=== PATIENT | female | born 1950 | race Caucasian/White ===

== ENCOUNTER 2024-03-19 09:15 | Emergency (ER) | payer MEDICARE, SELFPAY ==
[2024-03-19] VITALS (9 sets, daily range): BP systolic 180–189; BP diastolic 98–116; PULSE 64–75; RESP 17–23; TEMP 36.6; O2SAT 95–98
--- NOTE | 2024-03-19 09:27 | ED.GENADULT ---
HPI - General Adult General Chief complaint: Urogenital-Female Stated complaint: UTI? ams Time Seen by Provider: 03/19/24 09:17 History of Present Illness HPI narrative: Patient is a 73-year-old female with history of dementia who presents ER from her halfway with concerns for possible UTI. She has been urinating more often than usual. She feels like she has a full bladder. No reports of fevers or chills. Patient has no additional complaints at this time. Blood pressure is noted be elevated, unsure if she received her blood pressure medications this morning. Related Data Allergies Allergy/AdvReac Type Severity Reaction Status Date / Time codeine Allergy Unknown Verified 03/19/24 09:26 donepezil Allergy Unknown Verified 03/19/24 09:26 Review of Systems Review of Systems: ROS unobtainable: Yes unobtainable due to mental status PMFSH Past Medical History Medical History (Updated 03/19/24 @ 10:29 by Hernán Frost MD) Dementia Depression Hyperlipidemia Hypertension Type 2 diabetes mellitus Surgical History Surgical History (Updated 03/19/24 @ 10:29 by Hernán Frost MD) No pertinent past surgical history Exam Narrative: GENERAL: Well-appearing, well-nourished, and in no acute distress. HEAD: Normocephalic, atraumatic. ENT: Mucous membranes moist. CHEST: Clear to auscultation. No respiratory distress. HEART: Regular rate and rhythm. Normal peripheral pulses. ABDOMEN: Soft, nontender, nondistended. : Normal appearing external genitalia without discharge. EXTREMITIES: Normal range of motion. No edema. SKIN: Warm, dry, no rash. NEURO: Alert and oriented x2. PSYCH: Normal mood and affect. Course Course Emergency Course: Unremarkable evaluation. Discharge back to facility. Labs normal. Vital Signs Vital signs: Vital Signs Temperature 98 F 03/19/24 09:20 Pulse Rate 74 03/19/24 09:20 Respiratory Rate 18 03/19/24 09:20 Blood Pressure 189/114 H 03/19/24 09:20 Pulse Oximetry 96 03/19/24 09:20 Oxygen Delivery Room Air 03/19/24 09:20 Temperature 98 F 03/19/24 09:20 Pulse Rate 70 03/19/24 09:41 Respiratory Rate 20 03/19/24 09:41 Blood Pressure 182/98 H 03/19/24 09:41 Pulse Oximetry 97 03/19/24 09:41 Oxygen Delivery Room Air 03/19/24 09:20 Medical Decision Making Vital Signs Vital Signs: Vital Signs Temperature 98 F 03/19/24 09:20 Pulse Rate 74 03/19/24 09:20 Respiratory Rate 18 03/19/24 09:20 Blood Pressure 189/114 H 03/19/24 09:20 Pulse Oximetry 96 03/19/24 09:20 Oxygen Delivery Room Air 03/19/24 09:20 Temperature 98 F 03/19/24 09:20 Pulse Rate 70 03/19/24 09:41 Respiratory Rate 20 03/19/24 09:41 Blood Pressure 182/98 H 03/19/24 09:41 Pulse Oximetry 97 03/19/24 09:41 Oxygen Delivery Room Air 03/19/24 09:20 Lab Data 03/19/24 09:27 03/19/24 09:27 Labs: Lab Results 03/19/24 Range/Units 09:27 WBC 6.4 (4.5-10.0) K/mm3 RBC 4.23 (4.2-5.4) M/mm3 Hgb 12.8 (12.0-15.0) g/dL Hct 39.4 (37.0-47.0) % MCV 93.1 (80-100) fl MCH 30.3 (26-34) pg MCHC 32.5 (32-36) g/dl RDW 15.1 H (11.5-14.5) % Plt Count 179 (150-375) k/mm3 MPV 10.8 H (7.4-10.4) fl Immature Gran % (Auto) 0.3 (0-0.5) % Neut % (Auto) 68.4 (45.5-73.1) % Lymph % (Auto) 23.3 (18.3-44.2) % [place] % (Auto) 6.3 (2.6-8.5) % Eos % (Auto) 1.4 (0-4.4) % Baso % (Auto) 0.3 (0.2-1.2) % Lymph # (Auto) 1.48 (0.9-3.2) K/mm3 [place] # (Auto) 0.4 (0.1-0.6) K/mm3 Eos # (Auto) 0.1 (0-0.3) K/mm3 Baso # (Auto) 0.0 (0.0-0.1) K/mm3 Abs Immat Gran (auto) 0.02 (0.00-0.031) K/mm3 Absolute Neuts (auto) 4.3 (1.3-6.7) K/mm3 Absolute Nucleated RBC 0.000 (0.0-0.012) K/mm3 Nucleated RBC % 0.0 (0.0-0.2) % Sodium 137 (137-145) mmol/L Potassium 4.2 (3.4-5.0) mmol/L Chloride 106 (98-107) mmol/L Carbon Dioxide 26 (22-30) mmol/L Anion Gap 5 (4
[2024-03-19 09:40] LABS: Basophils Percent Auto 0.3 % (0.2-1.2); Eosinophils Absolute Auto 0.1 K/mm3 (0-0.3); Eosinophils Percent Auto 1.4 % (0-4.4); Hematocrit 39.4 % (37.0-47.0); Hemoglobin 12.8 g/dL (12.0-15.0); Immature Granulocyte Absolute 0.02 K/mm3 (0.00-0.031); Immature Granulocyte Percent A 0.3 % (0-0.5); Lymphocytes Absolute Auto 1.48 K/mm3 (0.9-3.2); Lymphocytes Percent Auto 23.3 % (18.3-44.2); Mean Corpuscular HGB Conc 32.5 g/dl (32-36); Mean Corpuscular Hemoglobin 30.3 pg (26-34); Mean Corpuscular Volume 93.1 fl (80-100); Mean Platelet Volume 10.8 fl (7.4-10.4); Monocytes Absolute Auto 0.4 K/mm3 (0.1-0.6); Monocytes Percent Auto 6.3 % (2.6-8.5); Neutrophils Absolute Auto 4.3 K/mm3 (1.3-6.7); Neutrophils Percent Auto 68.4 % (45.5-73.1); Platelet Count Result 179 k/mm3 (150-375); Red Blood Count 4.23 M/mm3 (4.2-5.4); Red Cell Distribution Width 15.1 % (11.5-14.5); White Blood Count 6.4 K/mm3 (4.5-10.0)
[2024-03-19 09:41] LABS: Appearance Urine Clear (Clear); Bilirubin Urine Negative (Negative); Blood Urine Negative (Negative); Color Urine Yellow (Yellow); Glucose Urine UA Negative (Negative); Ketones Urine Negative (Negative); Leukocyte Esterase Ur Negative LEU/UL (Negative); Nitrate Urine Negative (Negative); Protein Urine Negative (Negative); Specific Grav Ur 1.014 (1.001-1.035); Urobilinogen Urine 0.2 mg/dL (<2.0)
[2024-03-19 09:48] LABS: Add Urine Microscopic? NO
[2024-03-19 09:53] LABS: Alanine Aminotransferase 19 U/L (6-35); Albumin Level 4.2 g/dL (3.5-5.1); Alkaline Phosphatase 58 U/L (38-126); Anion Gap 5 mmol/L (4-12); Aspartate Amino Transferase 29 U/L (14-36); Bilirubin,Total 0.6 mg/dL (0.2-1.3); Blood Urea Nitrogen 14 mg/dL (7-17); Calcium 9.3 mg/dL (8.4-10.2); Carbon Dioxide 26 mmol/L (22-30); Chloride 106 mmol/L (98-107); Estimated CRCL calculation 68 ml/min; Estimated Glomerular Filt Rate > 60; Glucose 100 mg/dL (65-110); Potassium 4.2 mmol/L (3.4-5.0); Sodium 137 mmol/L (137-145)
--- NOTE | 2024-03-19 11:27 | PC.NURSE ---
attempted to call report x2 to [facility] in [place]. LVM with call back number for report. Pt son called of update and notified pt up for discharge, Son to transport pt to assisted living
== END 2024-03-19 11:46 ==
PROVIDERS: Emergency Provider Emergency Medicine
DX: R35.0 Frequency of micturition (principal); F03.90 Unspecified dementia, unspecified severity, without behavioral disturbance, psychotic disturbance, mood disturbance, and anxiety; I10 Essential (primary) hypertension; E78.5 Hyperlipidemia, unspecified; E11.9 Type 2 diabetes mellitus without complications
CPT/HCPCS: 36415; 80053; 81003; 85025; 99283